=== PATIENT | female | born 1985 | race Caucasian/White ===

== ENCOUNTER 2017-01-28 11:46 | Emergency (ER) | payer OTHER ==
[2017-01-28 13:14] LABS: BASOPHIL % 0.3 % (0-2); PLATELET COUNT 270 x10^3mcL (130-400); RED CELL DISTRIBUTION WIDTH 13.3 % (11.5-14.5)
[2017-01-28 13:23] LABS: CALCIUM 8.6 mg/dL (8.5-10.1); CARBON DIOXIDE 29.7 mmol/L (21-32); CHLORIDE SERUM 106 mmol/L (98-107); CREATININE SERUM 0.7 mg/dL (0.6-1.0); GFR1 > 60 mL/min; GLUCOSE SERUM 101 mg/dL (74-106); POTASSIUM SERUM 3.7 mmol/L (3.5-5.1); SODIUM SERUM 142 mmol/L (136-145)
[2017-01-28 13:28] LABS: ALBUMIN 3.4 g/dL (3.4-5.0); ALKALINE PHOSPHATASE 102 U/L (46-116); ALT/SGPT 25 U/L (14-59); AST/SGOT 15 U/L (15-37); BILIRUBIN TOTAL 0.37 mg/dL (0.20-1.00); LIPASE 117 IU/L (73-393); TOTAL PROTEIN, SERUM 7.4 g/dL (6.4-8.2)
[2017-01-28 13:36] LABS: UA SPECIFIC GRAVITY 1.025 (1.005-1.035); microscopic required? YES; urine erythrocyte TRACE (NEGATIVE)
[2017-01-28 15:24] VITALS: BP 108/78
== END 2017-01-28 15:24 | disposition home or self-care (01) ==
LOC: ED 11:46
PROVIDERS: Emergency Medicine
DX: R10.2 Pelvic and perineal pain (principal); R11.2 Nausea with vomiting, unspecified; Z98.51 Tubal ligation status
CPT/HCPCS: 36415; 87491; 87591

== ENCOUNTER 2017-02-03 17:06 | Emergency (ER) | payer OTHER ==
[2017-02-03 19:11] VITALS: BP 115/85
[2017-02-05 04:23] LABS: RAPID PLASMA REAGIN Non Reactive (Non Reactive)
== END 2017-02-03 19:11 | disposition home or self-care (01) ==
LOC: ED 17:06
PROVIDERS: Emergency Medicine
DX: A56.8 Sexually transmitted chlamydial infection of other sites (principal)
CPT/HCPCS: 36415; J0696

== ENCOUNTER 2019-02-28 19:20 | Emergency (ER) | payer OTHER ==
[~2019-02-28] VITALS: Ht 157.5 cm; Wt 109.3 kg
[2019-02-28 19:28] VITALS: Ht 157.5 cm; Wt 109.3 kg
[2019-02-28 20:36] LABS: BASOPHIL % 0.6 % (0-2); PLATELET COUNT 289 x10^3mcL (130-400); RED CELL DISTRIBUTION WIDTH 13.8 % (11.5-14.5)
[2019-02-28 20:52] LABS: CALCIUM 8.6 mg/dL (8.5-10.1); CARBON DIOXIDE 33.1 mmol/L (21-32); CHLORIDE SERUM 103 mmol/L (98-107); CREATININE SERUM 0.9 mg/dL (0.6-1.0); GFR1 > 60 mL/min; GLUCOSE SERUM 159 mg/dL (74-106); POTASSIUM SERUM 3.6 mmol/L (3.5-5.1); SODIUM SERUM 141 mmol/L (136-145)
[2019-02-28 20:58] LABS: ALKALINE PHOSPHATASE 124 U/L (46-116); ALT/SGPT 41 U/L (14-59); AST/SGOT 27 U/L (15-37); BILIRUBIN TOTAL 0.28 mg/dL (0.20-1.00)
[2019-02-28 20:59] LABS: ALBUMIN 3.2 g/dL (3.4-5.0)
[2019-02-28 21:36] VITALS: BP 131/82
== END 2019-02-28 21:36 | disposition home or self-care (01) ==
LOC: ED 19:20
PROVIDERS: Emergency Medicine
DX: R07.89 Other chest pain (principal); F43.9 Reaction to severe stress, unspecified; F17.210 Nicotine dependence, cigarettes, uncomplicated; Z98.51 Tubal ligation status; Z98.890 Other specified postprocedural states
CPT/HCPCS: 36415; Q0092